=== PATIENT | female | born 1995 | race Caucasian/White ===

== ENCOUNTER 2025-08-29 08:54 | Outpatient (CLI) | payer OTHER, SELFPAY ==
--- OUTSIDE RECORDS SUMMARY | 2025-08-15 09:30 | XMS_ITS | Encounter Summary ---
Author Organization Healthcare Address [address] [place] [address] Care Team Providers Care Employment Security Officer Name Role Phone Gibran Romero Lefty BRAVO Primary Care Provider [phone] Reason for Visit * Reason Comments Urinary Incontinence Encounter Details Date Type Department Care Team ([facility] Contact Info) Description 08/15/2025 9:30 AM EDT Office Visit Medical Office Building Obstetrics and Gynecology [address], [address] [place] [address] Isra Ribera MD [address] [place] [address] Mixed incontinence (Primary Dx) Social History Tobacco Use Types Packs/Day Years Used Date Smoking Tobacco: Never Passive Smoke Exposure: Never Smokeless Tobacco: Never Tobacco Cessation:Counseling Given: No Alcohol Use Standard Drinks/Week Comments Yes 0 (1 standard drink = 0.6 oz pur e alcohol) rare PHQ-2 Answer Date Recorded Patient Health Questionnaire-2 Score 0 08/15/2025 PHQ-9 Answer Date Recorded Patient Health Questionnaire-9 Score 0 08/15/2025 Comments No Sex and Gender Information Value Date Recorded Sex Assigned at Not on file Legal Sex Female 2:24 PM EDT Gender Identity Not on file Sexual Orientation Not on file documented as of this encounter Last Filed Vital Signs Vital Sign Reading Time Taken Comments Blood Pressure 104/70 08/15/2025 10:40 AM EDT Pulse 56 08/15/2025 10:40 AM EDT Temperature 36.4 C (97.5 F) 08/15/2025 10:40 AM EDT Respiratory Rate 16 08/15/2025 10:40 AM EDT Oxygen Saturation - - Inhaled Oxygen Concentration - - Weight 55.1 kg (121 lb 6.4 oz) 08/15/2025 10:40 AM EDT Height 157.5 cm (5' 2 ) 08/15/2025 10:40 AM EDT Body Mass Index 22.2 08/15/2025 10:40 AM EDT documented in this encounter Functional Status * Over the past 2 weeks, how often have you been bothered by any of the following problems? Question Answer Date of Assessment Author Little interest or pleasure in doing things Not at all 08/15/2025 10:41 AM EDT Laura Chaudhary Feeling down, depressed, or hopeless Not at all 08/15/2025 10:41 AM EDT Laura Chaudhary Patient Health Questionnaire -2 Score 0 08/15/2025 10:41 AM EDT Laura Chaudhary * Question Answer Date of Assessment Author Trouble falling or staying asleep, or sleeping too much Not at all 08/15/2025 10:41 AM EDT Laura Luque Feeling tired or having rubina le energy Not at all 08/15/2025 10:41 AM EDT Laura Chaudhary Poor appetite or overeating Not at all 08/15/2025 10 :41 AM EDT Laura Chaudhary Feeling bad about yourself - or that you are a failure or have let yourself or your family down Not at all 08/15/2025 10:41 AM EDT Laura Chaudhary Trouble concentrating on things, such as reading the newspaper or watching television Not at all 08/15/2025 10:41 AM EDT Laura Chaudhary Moving or speaking so slowly that other people could have noticed? Or the opposite - being so fidgety or restless that you have been moving around a lot more than usual. Not at all 08/15/2025 10:41 AM EDT Laura Aguiar Thoughts that you would be better off or hurting yourself in some way Not at all 08/15/2025 10:41 AM EDT Doris Chaudhary Patient Health Questionnaire -9 Score 0 08/15/2025 10:41 AM Laura Tran * How difficult have these problems made it for you to do your work, take care of things at home, or get along with other people? Answer Date of Assessment Author Not difficult at all 08/15/2025 10:41 AM AXELT Laura Lloyd documented as of this encounter Miscellaneous Notes * Progress Notes - Isra Ribera MD - 08/15/2025 9:30 AM EDT Urogynecology Progress Note Subjective 29-year-old initially seen by Urogynecology in March for mixed urinary incontinence with an urge predominance presents for follow-up. We started VESIcare for management of her urge related symptoms. She reports significant improvement in urinary urgency and almost complete eradication of urge related incontinence. She denies significant side effects associated with the medications. Review of Systems Constitutional: Negative. HENT: Negative. Respiratory: Negative. Cardiovascular: Negative. Gastrointestinal: Negative. Genitourinary: Positive for urgency. Negative for difficulty urinating, dyspareunia, dysuria, enuresis, flank pain, frequency, hematuria, pelvic pain, vaginal bleeding and vaginal discharge. Musculoskeletal: Negative. Neurological: Negative. Psychiatric/Behavioral: Negative. Objective Visit Vitals BP 104/70 Pulse 56 Temp 36.4 ??C (97.5 ??F) (Tympanic) Resp 16 Physical Exam Constitutional: General: She is not in acute distress. Appearance: Normal appearance. She is normal weight. She is not ill-appearing or toxic-appearing. HENT: Head: Normocephalic and atraumatic. Neurological: Mental Status: She is alert. Psychiatric: Mood and Affect: Mood normal. Behavior: Behavior normal. Thought Content: Thought content normal. Judgment: Judgment normal. Vitals reviewed. Exam conducted with a golf course keeper present. Labs: Imaging: Assessment/Plan Assessment & Plan Mixed incontinence Doing well. 1. Continue solifenacin 2. Return to Urogynecology as needed Please note: This dictation was prepared using [employer] Direct voice recognition software. As a result errors may occur. When identified, these water inspector errors have been corrected. While every attempt is made to correct errors during dictation, errors may still exist. documented in this encounter Plan of Treatment Not on file documented as of this encounter Visit Diagnoses Diagnosis Mixed incontinence- Primary Mixed incontinence urge and stress (male)(female) documented in this encounter Additional Health Concerns Assessment Noted Time PHQ-9 Depression Total Score: 0 08/15/20 10:41 AM EDT A Body Mass Index follow-up plan has been documented for the patient 08/18/2025 8:22 AM EDT documented as of this encounter Care Teams Employment Security Officer Relationship Specialty Start Date End Date Gibran Romero DO [address] [place] [address] [place] [address] PCP - General 02/28/25 documented as of this encounter
[2025-08-29 14:33] LABS: Alanine Aminotransferase 71 U/L (12-78); Albumin Level 4.8 g/dl (3.5-5.0); Albumin/Globulin Ratio 1.8 (1.1-1.8); Alkaline Phosphatase 59 U/L (38-126); Anion Gap 17.8 mEq/L (5-15); Aspartate Amino Transferase 54 U/L (14-36); Bilirubin,Total 0.9 mg/dl (0.2-1.3); Blood Urea Nitrogen 12 mg/dl (7-17); Calcium 9.6 mg/dl (8.4-10.2); Carbon Dioxide 23 mmol/L (22.0-30.0); Chloride 102 mmol/L (98-107); Cholesterol 185 mg/dl (140-200); Creatinine,Serum 0.80 mg/dl (0.52-1.04); Estimated Glomerular Filt Rate 84 ml/min (>60); GFR (African American) 102 ML/MIN (>60); Globulin 2.7 g/dL (1.3-3.2); Glucose 66 mg/dl (74-100); HDL Cholesterol 60 mg/dl (40-60); Potassium 4.8 mmoL/L (3.5-5.1); Sodium 138 mmol/L (136-145); Total Protein,Serum 7.5 g/dl (6.3-8.2); Triglycerides 46 mg/dl (30-150)
--- OUTSIDE RECORDS SUMMARY | 2025-09-01 09:00 | XMS_ITS | Encounter Summary ---
Author Organization Healthcare Address [address] [id number] Care Team Providers Care Investigations Director Name Role Phone Gibran Romero DO Primary Care Provider [phone] Encounter Details Date Type Department Care Team (Latest Contact Info) Description 08/14/2025 Travel Social History Tobacco Use Types Packs/Day Years Used Date Smoking Tobacco: Never Passive Smoke Exposure: Never Smokeless Tobacco: Never Alcohol Use Standard Drinks/Week Comments Yes 0 [...] on file documented as of this encounter Plan of Treatment Not on file documented as of this encounter Visit Diagnoses Not on filedocumented in this encounter Additional Health Concerns Assessment Noted Time PHQ-9 Depression Total Score: 0 04/11/20 11:17 AM EDT A Body Mass Index follow-up plan has been documented for the patient 04/11/2025 12:13 PM EDT documented as of this encounter Care Teams Investigations Director Relationship Specialty Start Date End Date Gibran Romero DO [address] [place] [address] [place] PCP - General 02/28/25 documented as of this encounter
--- OUTSIDE RECORDS SUMMARY | 2025-09-01 09:01 | XMS_ITS | Encounter Summary ---
Author Organization Healthcare Address [address] [place] [address] Care Team Providers Care Posting Clerk Name Role Phone Gibran Roemro Lefty BRAVO Primary Care Provider [phone] Encounter Details Date Type Department Care Team (Latest Contact Info) Description 08/15/2025 Travel Social History Tobacco Use Types Packs/Day [...] on file documented as of this encounter Functional Status * Over the [...] much Not at all 08/15/2025 10:41 AM AXELT Laura Luque Feeling tired or having rubina [...] Questionnaire -9 Score 0 08/15/2025 10:41 AM EDT Laura Chaudhary * How difficult have these problems made it for you to do your work, take care of things at home, or get along with other people? Answer Date of Assessment Author Not difficult at all 08/15/2025 10:41 AM EDT Laura Lloyd documented as of this encounter Plan of Treatment Not on file documented as of this encounter Visit Diagnoses Not on filedocumented in this encounter Additional Health Concerns Assessment Noted Time PHQ-9 Depression Total Score: 0 08/15/20 10:41 AM EDT A Body Mass Index follow-up plan has been documented for the patient 08/18/2025 8:22 AM EDT documented as of this encounter Care Teams Posting Clerk Relationship Specialty Start Date End Date Gibran Romero, [address] [place] [address] [place] [address] PCP - General 02/28/25 documented as of this encounter
--- OUTSIDE RECORDS SUMMARY | 2025-09-01 09:01 | XMS_ITS | Clinical Summary ---
Author Organization Healthcare Address [address] [place] [address] Care Team Providers Care Ibm Bpm Developer Name Role Phone Gibran Romero Primary Care Provider [phone] Allergies No known active allergies Medications spironolactone (Aldactone) 50 MG tablet Take 1 tablet by mouth daily. 5 Active EPINEPHrine (Epipen) 0.3 MG/0.3ML injection syringe 5 Active clobetasol (Temovate) 0.05 % ointment APPLY TO HANDS UP TO 2 X DAILY NEEDED. 4 Active ketotifen (Zaditor) 0.035 % ophthalmic solution INSTILL 1 DROP INTO EACH EYE TWICE DAILY NEEDED 5 Active solifenacin (VESIcare) 5 MG tabletIndications :Mixed incontinence Take 1 tablet by mouth 1 time each day with dinner. Swallow tablet whole; do not crush, chew, or split. 30 tablet 5 5 10/08/20 25 Active Active Problems No known active problems Encounters Date Type Department Care Team Description 08/15/2025 9:30 AM EDT Office Visit Medical Office Building Obstetrics and Gynecology [address] [facility] [address] [facility] [place] [address] Isra Ribera MD Mixed incontinence (Primary Dx) 08/15/2025 Travel 08/14/2025 Travel from Last 3 Months Social History Tobacco Use Types Packs/Day Years [...] on file Sexual Orientation Not on file Last Filed Vital Signs Vital Sign Reading [...] Mass Index 22.2 08/15/2025 10:40 AM EDT Plan of Treatment Health Maintenance Due Date Last Done Comments [facility]-HIV Screening 1994 [facility]-Hepatitis C Screening 1994 [facility]-Infant/Child/Adol SDOH Screenings 1994 [facility]-Varicella Vaccines (1 of 2 - 13+ 2-dose series) 2007 [facility]- SDOH Screenings 2012 [facility]-Adult SDOH Screenings 2012 HPV Vaccines (1 - 3-dose SCDM series) 2021 [facility]-HPV/Cotest 2024 IAV-TKPSQ-20 Vaccine ( - 2023- season) 2025 [facility]-Influenza Vaccine (#1) 2025 10/29/2024 [facility]-Depression Screening 08/15/2026 08/15/2025, 07/28 [facility]-Cervical Cancer Screening 04/03/2027 [facility]-Pap Smear 04/03/2027 04/03/2024 [facility]-DTaP,Tdap,and Td Vaccines (9 - Td or Tdap) 08/14/2030 08/14/2020, 01/06/2011, 01/06/2011, Additional history exists [facility]-Zoster Vaccines (1 of 2) 2044 [facility]-HIB Vaccines Completed 06/17/1996, , 06/19/1995, Additional history exists [facility]-Hepatitis B Vaccines Completed 000, 09/17/1996, 06/17/1996, Additional history exists [facility]-IPV Vaccines Completed 01/13/2000, , 04/18/1995, Additional history exists [facility]-Hepatitis A Vaccines Aged Out No longer eligible based on patient's age to complete this topic [facility]-Pneumococcal Vaccine: Pediatrics (0 to 5 Years) and At-Risk Patients (6 to 49 Years) Aged Out No longer eligible based on patient's age to complete this topic [facility]-Rotavirus Vaccines Aged Out No lo nger eligible based on patient's age to complete this topic Insurance [facility] MEDICAID Care Teams Ibm Bpm Developer Relationship Specialty Start Date End Date Gibran Romero DO [address] [place] [address] PCP - General 02/28/25
--- OUTSIDE RECORDS SUMMARY | 2025-09-01 09:01 | XMS_ITS | Patient Health Record ---
[facility] Address [address] [facility], [place] [id number] Care Team Providers Care Machine I Coremaker Name Role Phone Maxine Ortega Unavailable Allergies No Known Allergies Reason For Referral No Information Medications Medication SIG (Take, Route, Frequency, Duration) Notes Start Date End Date Status levETIRAcetam Active Montelukast Sodium A ctive Nasacort Allergy 24HR Active 12 Hour Decongestant 120 MG 1 TAB(S) ORALLY EVERY 12 HOURS for 7 DAYS *Please review and pick correct strength-formulat ion from [facility] options. If intended option is not shown, discontinue and re-order from Quick Search* 09/21/2022 Not-Taking Ferrous Sulfate 325 (65 Fe) MG 1 tab(s) orally once a day for 90 days 09/19/2020 Not-Taking Spironolactone Activ e Immunizations Vaccine Route Administration Date Status Comme nts Fluzone Quad PF SDS 6mth and older IM Intramuscular 08/14/2020 Administered Tdap (Adacel) IM Intramuscular 08/14/2020 Administered Social History Tobacco Use: Social History Observation Description Date Details (start date - stop date) Never Smoker NA - NA Tobacco Use Question Answer Notes Are you a: never smoker Tobacco use other than smoking Question Answer Notes Are you an other tobacco user? 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
== END 2025-08-29 23:59 ==
LOC: LAB.DROPOF 09-01 08:54
PROVIDERS: PCP Internal Medicine; Visit Provider Internal Medicine
DX: Z00.00 Encounter for general adult medical examination without abnormal findings (principal); Z13.220 Encounter for screening for lipoid disorders
CPT/HCPCS: 80053; 80061